=== PATIENT | male | born 1985 | race African-American/Black ===

== ENCOUNTER 2018-06-04 17:55 | Emergency (ER) | payer SELFPAY ==
[~2018-06-04] VITALS: Ht 190.5 cm; Wt 97.5 kg
[2018-06-04 18:06] VITALS: BP 135/80
--- NOTE | 2018-06-04 18:33 | NUR ---
Patient discharged to home in stable condition. Written and verbal after care instructions given. Patient verbalizes understanding of instruction.
== END 2018-06-04 18:33 | disposition home or self-care (01) ==
LOC: ER 17:58
DX: F41.0 Panic disorder [episodic paroxysmal anxiety] (principal)